=== PATIENT | female | born 1935 | race Caucasian/White ===

== ENCOUNTER 2017-08-23 18:12 | Inpatient (IN) | payer MEDICARE, OTHER ==
[2017-08-23] MEDS: ALBUTEROL 0.5% (NEB) 2.5 MG/0.5 ML AMP INH (18:33)
[2017-08-23] MEDS: ONDANSETRON 4 MG INJ IV ×2 (19:15→20:46)
[2017-08-23] MEDS: NITROGLYCERIN 2% 1 GM OINT PKT TD (19:15)
[2017-08-23] MEDS: morphine 4 MG/ML VIAL IV ×2 (19:15→20:46)
[2017-08-23] MEDS: METHYLPREDNISOLONE 125 MG INJ IV (19:15)
[2017-08-23] MEDS: NITROGLYCERIN (SL) 0.4 MG TAB SL ×2 (19:15→20:28)
[2017-08-23 19:39] LABS: ADD MAN DIFF? NO
[2017-08-23 19:41] LABS: AADO2 Arterial 134.5 mmHg (7.0-24.0); Arterial Base Excess -6.2 mmol/L (-3.0-3); Arterial Blood Gas Oxygen Sat 99.8 mmHG (95.0-100.0); Arterial COHb 0.5 % (0.0-3.0); Arterial Fraction of Oxyhgb 99.1 % (93.0-99.0); Arterial HCO3 20.3 mmol/L (22.0-26.0); Arterial MetHb 0.2 % (0.0-1.5); Arterial Total Hemglobin 12.6 g/dl (12.0-18.0); Arterial pCO2 43.8 mmhg (35-45); Blood Gas IEPAP 15/5; MODE MASK - BIPAP; Site Right Brachial
[2017-08-23 19:43] LABS: BASOPHILS % 0.2 % (0.0-2.0); EOSINOPHILS # 0.1 10^3/ul (0.0-0.5); EOSINOPHILS % 1.2 % (0.0-7.0); HEMATOCRIT 36.6 % (37.0-47.0); HEMOGLOBIN 12.2 g/dl (12.0-16.0); LYMPHOCYTES % 33.9 % (15.0-51.0); MEAN CORPUSCULAR HEMOGLOBIN 33.7 pg (29.0-33.0); MEAN CORPUSCULAR HGB CONC 33.3 g/dl (32.0-37.0); MEAN CORPUSCULAR VOLUME 101.1 fl (82.0-101.0); MEAN PLATELET VOLUME 9.7 fl (7.4-10.4); MONOCYTE # 0.5 10^3/ul (0.3-0.9); MONOCYTES % 5.3 % (0.0-11.0); NEUTROPHIL # 5.3 10^3/ul (1.6-7.5); NEUTROPHILS % 59.2 % (39.0-77.0); PLATELET COUNT 224 10^3/UL (140-415); RED BLOOD COUNT 3.62 10^6/ul (4.20-5.40); RED CELL DISTRIBUTION WIDTH 13.6 % (11.5-14.5)
[2017-08-23 19:43] LABS: WHITE BLOOD COUNT 8.9 10^3/ul (4.8-10.8)
[2017-08-23 20:01] LABS: INR 0.85; PARTIAL THROMBOPLASTIN TIME 30.1 Sec (25.0-35.0); PROTIME 11.7 Sec (11.9-14.9); PT RATIO 0.9
[2017-08-23 20:24] LABS: ALANINE AMINOTRANSFERASE 56 IU/L (13-69); ALBUMIN 4.2 g/dl (3.3-4.9); ALBUMIN/GLOBULIN RATIO 1.35; ALKALINE PHOSPHATASE 59 IU/L (42-121); ANION GAP 14 (8-16); ASPARTATE AMINO TRANSFERASE 39 IU/L (15-46); BILIRUBIN,INDIRECT 0.1 mg/dl (0-1.1); BILIRUBIN,TOTAL 0.1 mg/dl (0.2-1.3); BLOOD UREA NITROGEN 15 mg/dl (7-20); CALCIUM 8.2 mg/dl (8.4-10.2); CARBON DIOXIDE 22 mmol/L (21-31); CHLORIDE 102 mmol/L (97-110); CREATININE 0.67 mg/dl (0.44-1.00); GLUCOSE 183 mg/dl (70-220); POTASSIUM 4.3 mmol/L (3.5-5.1); SODIUM 134 mmol/L (135-144); TOTAL PROTEIN 7.3 g/dl (6.1-8.1)
[2017-08-23 20:32] LABS: B-TYPE NATRIURETIC PEPTIDE 766 PG/ML (0-450)
[2017-08-23 20:35] LABS: TROPONIN-I 0.046 ng/ml (0.00-0.12)
[2017-08-23] MEDS ORDERED: ACETAMINOPHEN 325 MG TAB PO (21:00)
[2017-08-23] MEDS ORDERED: ONDANSETRON 4 MG INJ IV (21:00)
[2017-08-24] MEDS: morphine 2 MG INJ IV ×5 (00:59→21:47)
[2017-08-24] MEDS ORDERED: NITROGLYCERIN (SL) 0.4 MG TAB SL ×2 (01:00→02:00)
[2017-08-24] MEDS ORDERED: ALBUTEROL/IPRATROPIUM (NEB) 3 ML AMP HHN ×2 (01:00→02:00)
[2017-08-24] MEDS ORDERED: morphine 2 MG INJ IV (02:00)
[2017-08-24] MEDS ORDERED: ONDANSETRON 4 MG INJ IV (02:00)
[2017-08-24] MEDS ORDERED: CYCLOBENZAPRINE 10 MG TAB PO (02:00)
[2017-08-24] MEDS: DEXTROSE 5%-0.45% NACL 1,000 ML IV (02:37)
[2017-08-24] MEDS: FUROSEMIDE 20 MG INJ IV ×2 (06:13→18:21)
[2017-08-24 08:29] LABS: ADD MAN DIFF? NO
[2017-08-24 08:32] LABS: WHITE BLOOD COUNT 4.5 10^3/ul (4.8-10.8)
[2017-08-24 08:32] LABS: ABNORMAL IP MESSAGE 1; BASOPHILS % 0.2 % (0.0-2.0); EOSINOPHILS # 0.5 10^3/ul (0.0-0.5); EOSINOPHILS % 11.3 % (0.0-7.0); HEMATOCRIT 34.3 % (37.0-47.0); HEMOGLOBIN 11.6 g/dl (12.0-16.0); LYMPHOCYTES % 22.4 % (15.0-51.0); MEAN CORPUSCULAR HEMOGLOBIN 33.3 pg (29.0-33.0); MEAN CORPUSCULAR HGB CONC 33.8 g/dl (32.0-37.0); MEAN CORPUSCULAR VOLUME 98.6 fl (82.0-101.0); MEAN PLATELET VOLUME 9.7 fl (7.4-10.4); MONOCYTES % 0.9 % (0.0-11.0); NEUTROPHIL # 2.9 10^3/ul (1.6-7.5); PLATELET COUNT 204 10^3/UL (140-415); RED BLOOD COUNT 3.48 10^6/ul (4.20-5.40); RED CELL DISTRIBUTION WIDTH 13.6 % (11.5-14.5)
[2017-08-24 08:37] LABS: POSITIVE DIFF @See below
[2017-08-24] MEDS: CLOPIDOGREL 75 MG TAB PO (08:48)
[2017-08-24] MEDS: FERROUS SULFATE (EC) 325 MG TAB PO (08:48)
[2017-08-24] MEDS: METHYLPREDNISOLONE 40 MG INJ IV ×2 (08:48→21:45)
[2017-08-24] MEDS: ENALAPRIL 10 MG TAB PO (08:49)
[2017-08-24 08:59] LABS: ALANINE AMINOTRANSFERASE 69 IU/L (13-69); ALBUMIN 3.8 g/dl (3.3-4.9); ALBUMIN/GLOBULIN RATIO 1.22; ALKALINE PHOSPHATASE 42 IU/L (42-121); ANION GAP 16 (8-16); ASPARTATE AMINO TRANSFERASE 56 IU/L (15-46); BILIRUBIN,INDIRECT 0.3 mg/dl (0-1.1); BILIRUBIN,TOTAL 0.3 mg/dl (0.2-1.3); BLOOD UREA NITROGEN 13 mg/dl (7-20); CALCIUM 8.3 mg/dl (8.4-10.2); CARBON DIOXIDE 21 mmol/L (21-31); CHLORIDE 100 mmol/L (97-110); CHOL/HDL RATIO 2.1 RATIO; CHOLESTEROL 169 mg/dl (100-200); CREATININE 0.56 mg/dl (0.44-1.00); GLUCOSE 220 mg/dl (70-220); HDL CHOLESTEROL 80 mg/dl (33-92); LDL CHOLESTEROL,CALCULATED 74 mg/dl; MAGNESIUM 1.6 mg/dl (1.7-2.5); POTASSIUM 4.4 mmol/L (3.5-5.1); SODIUM 133 mmol/L (135-144); TOTAL PROTEIN 6.9 g/dl (6.1-8.1); TRIGLYCERIDES 73 mg/dl (0-149)
[2017-08-24] MEDS: ASPIRIN (EC) 81 MG TAB PO (11:30)
[2017-08-24] MEDS: LEVOFLOXACIN 500MG/D5W (PMX) 100 ML IVPB (11:30)
[2017-08-24] MEDS: CALCIUM/VITAMIN D (500/200) TAB PO (11:30)
[2017-08-24] MEDS: MULTIVITAMINS/MINERALS TAB PO (12:36)
[2017-08-24] MEDS: ALBUTEROL/IPRATROPIUM (NEB) 3 ML AMP HHN ×3 (14:02→21:11)
[2017-08-24] MEDS: ATORVASTATIN 40 MG TAB PO (21:46)
[2017-08-24] MEDS: LATANOPROST 0.005% 2.5 ML OPH BOTH EYES (21:46)
[2017-08-24] MEDS: MAGNESIUM SULFATE 4 GM/100 ML 100 ML IVPB (23:20)
[2017-08-24] MEDS: ACETAMINOPHEN 325 MG TAB PO (23:26)
[2017-08-25] MEDS: ALBUTEROL/IPRATROPIUM (NEB) 3 ML AMP HHN ×6 (01:10→20:17)
[2017-08-25] MEDS: morphine 2 MG INJ IV ×3 (04:26→20:26)
[2017-08-25] MEDS: FUROSEMIDE 20 MG INJ IV (06:55)
[2017-08-25 08:45] LABS: ADD MAN DIFF? NO
[2017-08-25] MEDS: CLOPIDOGREL 75 MG TAB PO (08:48)
[2017-08-25] MEDS: FERROUS SULFATE (EC) 325 MG TAB PO (08:48)
[2017-08-25] MEDS: CALCIUM/VITAMIN D (500/200) TAB PO (08:48)
[2017-08-25] MEDS: ASPIRIN (EC) 81 MG TAB PO (08:48)
[2017-08-25] MEDS: BENZONATATE 100 MG CAP PO (08:48)
[2017-08-25] MEDS: MULTIVITAMINS/MINERALS TAB PO (08:48)
[2017-08-25] MEDS: METHYLPREDNISOLONE 40 MG INJ IV ×2 (08:48→20:29)
[2017-08-25] MEDS: FUROSEMIDE 40 MG TAB PO (08:49)
[2017-08-25] MEDS: ENALAPRIL 10 MG TAB PO (08:49)
[2017-08-25 09:03] LABS: WHITE BLOOD COUNT 7.1 10^3/ul (4.8-10.8)
[2017-08-25 09:03] LABS: BASOPHILS % 0.3 % (0.0-2.0); HEMOGLOBIN 12.4 g/dl (12.0-16.0); LYMPHOCYTES # 0.6 10^3/ul (0.8-2.9); LYMPHOCYTES % 8.9 % (15.0-51.0); MEAN CORPUSCULAR HEMOGLOBIN 33.7 pg (29.0-33.0); MEAN CORPUSCULAR HGB CONC 34.4 g/dl (32.0-37.0); MEAN CORPUSCULAR VOLUME 97.8 fl (82.0-101.0); MEAN PLATELET VOLUME 9.7 fl (7.4-10.4); MONOCYTE # 0.3 10^3/ul (0.3-0.9); MONOCYTES % 3.5 % (0.0-11.0); NEUTROPHIL # 6.2 10^3/ul (1.6-7.5); NEUTROPHILS % 87.2 % (39.0-77.0); NUCLEATED RED BLOOD CELLS # 0.3 10^3/ul (0.0-0.0); NUCLEATED RED BLOOD CELLS% 4.2 /100WBC (0.0-0.0); PLATELET COUNT 200 10^3/UL (140-415); RED BLOOD COUNT 3.68 10^6/ul (4.20-5.40); RED CELL DISTRIBUTION WIDTH 13.3 % (11.5-14.5)
[2017-08-25 09:15] LABS: CREATINE KINASE 224 IU/L (23-200)
[2017-08-25 09:26] LABS: B-TYPE NATRIURETIC PEPTIDE 17300 PG/ML (0-450)
[2017-08-25 09:28] LABS: CK INDEX 5.3
[2017-08-25 09:32] LABS: TROPONIN-I 0.675 ng/ml (0.00-0.12)
[2017-08-25 09:45] LABS: ANION GAP 16 (8-16); BLOOD UREA NITROGEN 17 mg/dl (7-20); CALCIUM 8.8 mg/dl (8.4-10.2); CARBON DIOXIDE 24 mmol/L (21-31); CHLORIDE 95 mmol/L (97-110); CREATININE 0.73 mg/dl (0.44-1.00); GLUCOSE 163 mg/dl (70-220); MAGNESIUM 2.9 mg/dl (1.7-2.5); PHOSPHORUS 2.6 mg/dl (2.5-4.9); POTASSIUM 4.4 mmol/L (3.5-5.1); SODIUM 131 mmol/L (135-144)
[2017-08-25] MEDS: LEVOFLOXACIN 500MG/D5W (PMX) 100 ML IVPB (11:33)
[2017-08-25] MEDS: ACETAMINOPHEN 325 MG TAB PO (14:17)
[2017-08-25] MEDS: MAGNESIUM CITRATE 300 ML BTL PO (14:17)
[2017-08-25 15:57] LABS: ADD UMIC YES; UR ASCORBIC ACID NEGATIVE (NEGATIVE); UR BILIRUBIN (Dip) NEGATIVE (NEGATIVE); UR BLOOD (Dip) 1+ mg/dL (NEGATIVE); UR CLARITY CLEAR (CLEAR); UR COLOR YELLOW (YELLOW); UR GLUCOSE (Dip) NEGATIVE (NEGATIVE); UR KETONES (Dip) NEGATIVE (NEGATIVE); UR LEUKOCYTE ESTERASE (Dip) NEGATIVE Leu/ul (NEGATIVE); UR NITRITE (Dip) NEGATIVE (NEGATIVE); UR RBC 2 /HPF (0-5); UR SPECIFIC GRAVITY (Dip) 1.005 (1.003-1.030); UR TOTAL PROTEIN (Dip) NEGATIVE (NEGATIVE); UR UROBILINOGEN (Dip) NEGATIVE (NEGATIVE); UR WBC 0 /HPF (0-5)
[2017-08-25] MEDS: ATORVASTATIN 40 MG TAB PO (20:29)
[2017-08-25] MEDS: DOCUSATE SODIUM 100 MG CAP PO (20:29)
[2017-08-25] MEDS: LATANOPROST 0.005% 2.5 ML OPH BOTH EYES (20:30)
[2017-08-26] MEDS: ALBUTEROL/IPRATROPIUM (NEB) 3 ML AMP HHN ×3 (00:31→08:28)
[2017-08-26] MEDS: morphine 2 MG INJ IV ×4 (00:39→22:04)
[2017-08-26 07:58] LABS: ADD MAN DIFF? NO
[2017-08-26 08:07] LABS: WHITE BLOOD COUNT 7.5 10^3/ul (4.8-10.8)
[2017-08-26 08:07] LABS: HEMATOCRIT 36.1 % (37.0-47.0); HEMOGLOBIN 12.4 g/dl (12.0-16.0); LYMPHOCYTES % 12.9 % (15.0-51.0); MEAN CORPUSCULAR HEMOGLOBIN 33.1 pg (29.0-33.0); MEAN CORPUSCULAR HGB CONC 34.3 g/dl (32.0-37.0); MEAN CORPUSCULAR VOLUME 96.3 fl (82.0-101.0); MEAN PLATELET VOLUME 9.6 fl (7.4-10.4); MONOCYTE # 0.6 10^3/ul (0.3-0.9); MONOCYTES % 7.7 % (0.0-11.0); NEUTROPHIL # 5.9 10^3/ul (1.6-7.5); NEUTROPHILS % 79.1 % (39.0-77.0); PLATELET COUNT 221 10^3/UL (140-415); RED BLOOD COUNT 3.75 10^6/ul (4.20-5.40); RED CELL DISTRIBUTION WIDTH 13.2 % (11.5-14.5)
[2017-08-26 08:22] LABS: INR 0.99; PROTIME 13.2 Sec (11.9-14.9)
[2017-08-26 08:23] LABS: CREATINE KINASE 107 IU/L (23-200)
[2017-08-26 08:29] LABS: ALANINE AMINOTRANSFERASE 72 IU/L (13-69); ALBUMIN 3.5 g/dl (3.3-4.9); ALBUMIN/GLOBULIN RATIO 1.34; ALKALINE PHOSPHATASE 45 IU/L (42-121); ANION GAP 12 (8-16); ASPARTATE AMINO TRANSFERASE 40 IU/L (15-46); BILIRUBIN,INDIRECT 0.4 mg/dl (0-1.1); BILIRUBIN,TOTAL 0.4 mg/dl (0.2-1.3); BLOOD UREA NITROGEN 24 mg/dl (7-20); CALCIUM 8.6 mg/dl (8.4-10.2); CARBON DIOXIDE 31 mmol/L (21-31); CHLORIDE 94 mmol/L (97-110); CREATININE 0.79 mg/dl (0.44-1.00); GLUCOSE 155 mg/dl (70-220); MAGNESIUM 2.5 mg/dl (1.7-2.5); SODIUM 133 mmol/L (135-144); TOTAL PROTEIN 6.1 g/dl (6.1-8.1)
[2017-08-26 08:30] LABS: B-TYPE NATRIURETIC PEPTIDE 21100 PG/ML (0-450)
[2017-08-26 08:34] LABS: CK INDEX 5.6; CK-MB 5.98 ng/ml (0.0-2.4)
[2017-08-26 08:44] LABS: TROPONIN-I 0.315 ng/ml (0.00-0.12)
[2017-08-26] MEDS: METHYLPREDNISOLONE 40 MG INJ IV ×2 (10:38→20:53)
[2017-08-26] MEDS: LEVOFLOXACIN 500MG/D5W (PMX) 100 ML IVPB (10:41)
[2017-08-26] MEDS ORDERED: METHYLPREDNISOLONE (MEDROL) DOSE PACK PO (12:00)
[2017-08-26] MEDS ORDERED: LIDOCAINE 1% (MDV) 20 ML INJ (15:44)
[2017-08-26] MEDS ORDERED: HEPARIN 1000 UNITS/ML 10 ML INJ (15:44)
[2017-08-26] MEDS ORDERED: FENTAnyl 50 MCG/ML VIAL (15:44)
[2017-08-26] MEDS ORDERED: IODIXANOL LOCM 100 ML BTL ×2 (15:44→18:01)
[2017-08-26] MEDS ORDERED: MIDAZOLAM 1 MG/ML 2 ML INJ (15:44)
[2017-08-26] MEDS ORDERED: VERAPAMIL 5 MG INJ (16:26)
[2017-08-26] MEDS ORDERED: SOD CHLORIDE 0.9% 500 ML (16:26)
[2017-08-26] MEDS ORDERED: ADENOSINE 30 ML (16:32)
[2017-08-26] MEDS ORDERED: TICAGRELOR 90 MG TABLET (16:48)
[2017-08-26] MEDS ORDERED: NITROGLYCERIN (IC) 100 MCG/ML INJ (16:49)
[2017-08-26] MEDS ORDERED: ACETAMINOPHEN 325 MG TAB PO (18:00)
[2017-08-26] MEDS ORDERED: morphine 2 MG INJ IV (18:00)
[2017-08-26] MEDS ORDERED: BIVALIRUDIN 250MG /NS 50 ML 50 ML IVPB (18:01)
[2017-08-26] MEDS ORDERED: IOHEXOL 350MG/ML 50 ML BTL (18:01)
[2017-08-26] MEDS: DOCUSATE SODIUM 100 MG CAP PO (18:51)
[2017-08-26] MEDS: ASPIRIN (EC) 81 MG TAB PO (18:56)
[2017-08-26] MEDS: CALCIUM/VITAMIN D (500/200) TAB PO (18:56)
[2017-08-26] MEDS: ENALAPRIL 10 MG TAB PO (18:56)
[2017-08-26] MEDS: MULTIVITAMINS/MINERALS TAB PO (18:56)
[2017-08-26] MEDS: CLOPIDOGREL 75 MG TAB PO (18:56)
[2017-08-26] MEDS: FERROUS SULFATE (EC) 325 MG TAB PO (18:57)
[2017-08-26] MEDS: OXYCODONE/ACETAMINOPHEN (5/325) TAB PO ×2 (19:16→23:27)
[2017-08-26] MEDS: SOD CHLORIDE 0.9% 1,000 ML IV (19:30)
[2017-08-26] MEDS: ATORVASTATIN 40 MG TAB PO (20:48)
[2017-08-26] MEDS: LATANOPROST 0.005% 2.5 ML OPH BOTH EYES (21:22)
[2017-08-26] MEDS: DOCUSATE SODIUM 10 MG/ML (10ML CUP) PO (21:22)
[2017-08-26] MEDS: NACL 0.9% 3 ML SYG IV (21:27)
[2017-08-27] MEDS: morphine 2 MG INJ IV ×5 (02:26→21:05)
[2017-08-27] MEDS: SOD CHLORIDE 0.9% 500 ML IV ×4 (03:12→23:00)
[2017-08-27 04:58] LABS: ADD MAN DIFF? NO
[2017-08-27 05:04] LABS: HEMOGLOBIN 10.9 g/dl (12.0-16.0); LYMPHOCYTES # 0.9 10^3/ul (0.8-2.9); LYMPHOCYTES % 13.4 % (15.0-51.0); MEAN CORPUSCULAR HEMOGLOBIN 33.4 pg (29.0-33.0); MEAN CORPUSCULAR HGB CONC 34.1 g/dl (32.0-37.0); MEAN CORPUSCULAR VOLUME 98.2 fl (82.0-101.0); MEAN PLATELET VOLUME 9.9 fl (7.4-10.4); MONOCYTE # 0.4 10^3/ul (0.3-0.9); MONOCYTES % 6.5 % (0.0-11.0); NEUTROPHIL # 5.3 10^3/ul (1.6-7.5); NEUTROPHILS % 79.6 % (39.0-77.0); PLATELET COUNT 191 10^3/UL (140-415); RED BLOOD COUNT 3.26 10^6/ul (4.20-5.40); RED CELL DISTRIBUTION WIDTH 13.3 % (11.5-14.5)
[2017-08-27 05:04] LABS: WHITE BLOOD COUNT 6.6 10^3/ul (4.8-10.8)
[2017-08-27 05:28] LABS: ANION GAP 12 (8-16); BLOOD UREA NITROGEN 27 mg/dl (7-20); CARBON DIOXIDE 27 mmol/L (21-31); CHLORIDE 99 mmol/L (97-110); CREATININE 0.76 mg/dl (0.44-1.00); GLUCOSE 157 mg/dl (70-220); SODIUM 134 mmol/L (135-144)
[2017-08-27] MEDS: LEVOFLOXACIN 500 MG TAB PO (05:31)
[2017-08-27] MEDS: OXYCODONE/ACETAMINOPHEN (5/325) TAB PO ×2 (05:34→08:06)
[2017-08-27] MEDS: FERROUS SULFATE (EC) 325 MG TAB PO (09:18)
[2017-08-27] MEDS: DOCUSATE SODIUM 10 MG/ML (10ML CUP) PO ×2 (09:18→20:49)
[2017-08-27] MEDS: METHYLPREDNISOLONE 40 MG INJ IV (09:20)
[2017-08-27] MEDS: ASPIRIN (EC) 81 MG TAB PO (09:21)
[2017-08-27] MEDS: CALCIUM/VITAMIN D (500/200) TAB PO (09:21)
[2017-08-27] MEDS: CLOPIDOGREL 75 MG TAB PO (09:21)
[2017-08-27] MEDS: MULTIVITAMINS/MINERALS TAB PO (09:22)
[2017-08-27] MEDS: ENALAPRIL 10 MG TAB PO (09:23)
[2017-08-27] MEDS: ATORVASTATIN 40 MG TAB PO (20:49)
[2017-08-27] MEDS: LATANOPROST 0.005% 2.5 ML OPH BOTH EYES (21:13)
[2017-08-28] MEDS: SOD CHLORIDE 0.9% 500 ML IV ×3 (00:25→19:00)
[2017-08-28] MEDS: OXYCODONE/ACETAMINOPHEN (5/325) TAB PO (00:25)
[2017-08-28] MEDS: morphine 2 MG INJ IV ×3 (04:57→22:46)
[2017-08-28] MEDS: LEVOFLOXACIN 500 MG TAB PO (04:57)
[2017-08-28 06:13] LABS: ADD MAN DIFF? NO
[2017-08-28 06:26] LABS: HEMATOCRIT 32.3 % (37.0-47.0); HEMOGLOBIN 10.8 g/dl (12.0-16.0); LYMPHOCYTES # 1.5 10^3/ul (0.8-2.9); LYMPHOCYTES % 22.2 % (15.0-51.0); MEAN CORPUSCULAR HEMOGLOBIN 33.5 pg (29.0-33.0); MEAN CORPUSCULAR HGB CONC 33.4 g/dl (32.0-37.0); MEAN CORPUSCULAR VOLUME 100.3 fl (82.0-101.0); MEAN PLATELET VOLUME 9.9 fl (7.4-10.4); MONOCYTE # 0.8 10^3/ul (0.3-0.9); MONOCYTES % 12.1 % (0.0-11.0); NEUTROPHIL # 4.3 10^3/ul (1.6-7.5); NEUTROPHILS % 65.4 % (39.0-77.0); PLATELET COUNT 175 10^3/UL (140-415); RED BLOOD COUNT 3.22 10^6/ul (4.20-5.40); RED CELL DISTRIBUTION WIDTH 13.3 % (11.5-14.5)
[2017-08-28 06:26] LABS: WHITE BLOOD COUNT 6.5 10^3/ul (4.8-10.8)
[2017-08-28 07:46] LABS: ANION GAP 12 (8-16); BLOOD UREA NITROGEN 27 mg/dl (7-20); CARBON DIOXIDE 26 mmol/L (21-31); CHLORIDE 104 mmol/L (97-110); CREATININE 0.78 mg/dl (0.44-1.00); GLUCOSE 101 mg/dl (70-220); POTASSIUM 3.9 mmol/L (3.5-5.1); SODIUM 138 mmol/L (135-144)
[2017-08-28] MEDS: ENALAPRIL 10 MG TAB PO (09:55)
[2017-08-28] MEDS: CLOPIDOGREL 75 MG TAB PO (09:55)
[2017-08-28] MEDS: DOCUSATE SODIUM 10 MG/ML (10ML CUP) PO ×2 (09:55→20:44)
[2017-08-28] MEDS: FERROUS SULFATE (EC) 325 MG TAB PO (09:56)
[2017-08-28] MEDS: MULTIVITAMINS/MINERALS TAB PO (09:56)
[2017-08-28] MEDS: ASPIRIN (EC) 81 MG TAB PO (09:57)
[2017-08-28] MEDS: CALCIUM/VITAMIN D (500/200) TAB PO (09:57)
[2017-08-28] MEDS: ATORVASTATIN 40 MG TAB PO (20:44)
[2017-08-28] MEDS: LATANOPROST 0.005% 2.5 ML OPH BOTH EYES (20:46)
[2017-08-29] MEDS: SOD CHLORIDE 0.9% 500 ML IV ×2 (01:40→08:20)
[2017-08-29] MEDS: morphine 2 MG INJ IV ×5 (03:06→22:57)
[2017-08-29] MEDS: LEVOFLOXACIN 500 MG TAB PO (06:48)
[2017-08-29 08:17] LABS: ADD MAN DIFF? NO
[2017-08-29 08:33] LABS: BASOPHILS % 0.1 % (0.0-2.0); EOSINOPHILS # 0.2 10^3/ul (0.0-0.5); EOSINOPHILS % 2.2 % (0.0-7.0); HEMATOCRIT 34.4 % (37.0-47.0); HEMOGLOBIN 11.2 g/dl (12.0-16.0); LYMPHOCYTES # 1.5 10^3/ul (0.8-2.9); LYMPHOCYTES % 19.1 % (15.0-51.0); MEAN CORPUSCULAR HEMOGLOBIN 33.2 pg (29.0-33.0); MEAN CORPUSCULAR HGB CONC 32.6 g/dl (32.0-37.0); MEAN CORPUSCULAR VOLUME 102.1 fl (82.0-101.0); MEAN PLATELET VOLUME 10.3 fl (7.4-10.4); MONOCYTE # 0.8 10^3/ul (0.3-0.9); MONOCYTES % 10.4 % (0.0-11.0); NEUTROPHIL # 5.3 10^3/ul (1.6-7.5); NEUTROPHILS % 67.7 % (39.0-77.0); PLATELET COUNT 175 10^3/UL (140-415); RED BLOOD COUNT 3.37 10^6/ul (4.20-5.40); RED CELL DISTRIBUTION WIDTH 13.5 % (11.5-14.5)
[2017-08-29 08:33] LABS: WHITE BLOOD COUNT 7.8 10^3/ul (4.8-10.8)
[2017-08-29 08:53] LABS: ANION GAP 12 (8-16); BLOOD UREA NITROGEN 24 mg/dl (7-20); CARBON DIOXIDE 28 mmol/L (21-31); CHLORIDE 103 mmol/L (97-110); GLUCOSE 88 mg/dl (70-220); POTASSIUM 4.3 mmol/L (3.5-5.1); SODIUM 139 mmol/L (135-144)
[2017-08-29] MEDS: HYDROCODONE/APAP (5/325) TAB PO (10:47)
[2017-08-29] MEDS: DOCUSATE SODIUM 10 MG/ML (10ML CUP) PO ×2 (10:47→21:00)
[2017-08-29] MEDS: MULTIVITAMINS/MINERALS TAB PO (10:49)
[2017-08-29] MEDS: CLOPIDOGREL 75 MG TAB PO (10:49)
[2017-08-29] MEDS: FERROUS SULFATE (EC) 325 MG TAB PO (10:49)
[2017-08-29] MEDS: CALCIUM/VITAMIN D (500/200) TAB PO (10:49)
[2017-08-29] MEDS: ENALAPRIL 10 MG TAB PO (10:50)
[2017-08-29] MEDS: ASPIRIN (EC) 81 MG TAB PO (10:50)
[2017-08-29] MEDS: ATORVASTATIN 40 MG TAB PO (21:23)
[2017-08-29] MEDS: LATANOPROST 0.005% 2.5 ML OPH BOTH EYES (21:25)
[2017-08-30] MEDS: HYDROCODONE/APAP (5/325) TAB PO ×2 (03:12→09:10)
[2017-08-30] MEDS: LEVOFLOXACIN 500 MG TAB PO (05:44)
[2017-08-30] MEDS: morphine 2 MG INJ IV (05:44)
[2017-08-30] MEDS: DOCUSATE SODIUM 10 MG/ML (10ML CUP) PO (09:06)
[2017-08-30] MEDS: CLOPIDOGREL 75 MG TAB PO (09:08)
[2017-08-30] MEDS: ASPIRIN (EC) 81 MG TAB PO (09:08)
[2017-08-30] MEDS: FERROUS SULFATE (EC) 325 MG TAB PO (09:08)
[2017-08-30] MEDS: MULTIVITAMINS/MINERALS TAB PO (09:08)
[2017-08-30] MEDS: CALCIUM/VITAMIN D (500/200) TAB PO (09:09)
[2017-08-30] MEDS: ENALAPRIL 10 MG TAB PO (09:09)
[2017-08-30] MEDS ORDERED: BARIUM SULFATE 135 ML (E-Z HD) PO (11:55)
[2017-08-31] MEDS ORDERED: ENALAPRIL 5 MG TAB PO (09:00)
== END 2017-08-30 12:45 | disposition home or self-care (01) | DRG 981 ==
LOC: ICU 08-26 18:21 → MS4 08-27 14:25 → E/R 18:12 → MS4 20:37
PROC: 027036Z Dilation of Coronary Artery, One Artery with Three Drug-eluting Intraluminal Devices, Percutaneous Approach (ICD-10-PCS; principal; 2017-08-26 12:00)
PROC: 4A023N7 Measurement of Cardiac Sampling and Pressure, Left Heart, Percutaneous Approach (ICD-10-PCS; 2017-08-26 12:00)
PROC: B211YZZ Fluoroscopy of Multiple Coronary Arteries using Other Contrast (ICD-10-PCS; 2017-08-26 12:00)
PROC: 4A033BC Measurement of Arterial Pressure, Coronary, Percutaneous Approach (ICD-10-PCS; 2017-08-26 12:00)
DX: J96.01 Acute respiratory failure with hypoxia (principal); I21.4 Non-ST elevation (NSTEMI) myocardial infarction; I50.33 Acute on chronic diastolic (congestive) heart failure; E87.2 Acidosis; D62 Acute posthemorrhagic anemia; J44.0 Chronic obstructive pulmonary disease with (acute) lower respiratory infection; E87.1 Hypo-osmolality and hyponatremia; J44.1 Chronic obstructive pulmonary disease with (acute) exacerbation; T82.855A Stenosis of coronary artery stent, initial encounter; I77.1 Stricture of artery; I11.0 Hypertensive heart disease with heart failure; I35.0 Nonrheumatic aortic (valve) stenosis; I25.10 Atherosclerotic heart disease of native coronary artery without angina pectoris; I25.5 Ischemic cardiomyopathy; J20.9 Acute bronchitis, unspecified; I07.1 Rheumatic tricuspid insufficiency; M06.9 Rheumatoid arthritis, unspecified; E78.5 Hyperlipidemia, unspecified; G89.29 Other chronic pain; M54.9 Dorsalgia, unspecified; H40.9 Unspecified glaucoma; I25.2 Old myocardial infarction; Z95.5 Presence of coronary angioplasty implant and graft; Z87.891 Personal history of nicotine dependence; Z79.02 Long term (current) use of antithrombotics/antiplatelets
CPT/HCPCS: 36415; 36600; 71045; 71250; 74230; 80048; 80053; 80061; 81001; 82550; 82553; 82803; 83735; 83880; 84100; 84484; 85025; 85610; 85730; 87081; 92526; 92610; 92611; 93005; 93306; 93458; 93571; 93926; 94640; 94660; 94664; 96374; 96375; 96376; 97110; 97116; 97164; 97530; 99291-25; J1940

== ENCOUNTER 2017-09-08 23:27 | Observation (INO) | payer MEDICARE, OTHER ==
[2017-09-09 01:52] LABS: ADD MAN DIFF? NO
[2017-09-09 01:54] LABS: BASOPHILS % 0.4 % (0.0-2.0); EOSINOPHILS # 0.2 10^3/ul (0.0-0.5); EOSINOPHILS % 4.2 % (0.0-7.0); HEMATOCRIT 30.1 % (37.0-47.0); HEMOGLOBIN 10.2 g/dl (12.0-16.0); LYMPHOCYTES # 1.8 10^3/ul (0.8-2.9); LYMPHOCYTES % 31.2 % (15.0-51.0); MEAN CORPUSCULAR HGB CONC 33.9 g/dl (32.0-37.0); MEAN CORPUSCULAR VOLUME 100.3 fl (82.0-101.0); MEAN PLATELET VOLUME 10.5 fl (7.4-10.4); MONOCYTE # 0.7 10^3/ul (0.3-0.9); MONOCYTES % 12.7 % (0.0-11.0); NEUTROPHIL # 2.9 10^3/ul (1.6-7.5); NEUTROPHILS % 51.3 % (39.0-77.0); PLATELET COUNT 235 10^3/UL (140-415); RED CELL DISTRIBUTION WIDTH 13.7 % (11.5-14.5)
[2017-09-09 01:54] LABS: WHITE BLOOD COUNT 5.7 10^3/ul (4.8-10.8)
[2017-09-09 02:15] LABS: ANION GAP 15 (8-16); BLOOD UREA NITROGEN 7 mg/dl (7-20); CALCIUM 8.8 mg/dl (8.4-10.2); CARBON DIOXIDE 24 mmol/L (21-31); CHLORIDE 100 mmol/L (97-110); GLUCOSE 103 mg/dl (70-220); POTASSIUM 4.3 mmol/L (3.5-5.1); SODIUM 135 mmol/L (135-144)
[2017-09-09 02:24] LABS: B-TYPE NATRIURETIC PEPTIDE 6050 PG/ML (0-450)
[2017-09-09] MEDS: DIPHENHYDRAMINE 50 MG INJ IV (02:40)
[2017-09-09] MEDS: HYDROCODONE/APAP (5/325) TAB PO ×3 (03:29→19:09)
[2017-09-09] MEDS: FUROSEMIDE 40 MG INJ IV (03:29)
[2017-09-09] MEDS ORDERED: NACL 0.9% 3 ML SYG IV (06:00)
[2017-09-09] MEDS ORDERED: NITROGLYCERIN (SL) 0.4 MG TAB SL (06:00)
[2017-09-09] MEDS ORDERED: ALBUTEROL/IPRATROPIUM (NEB) 3 ML AMP HHN (06:00)
[2017-09-09] MEDS ORDERED: morphine 2 MG INJ (07:44)
[2017-09-09] MEDS: ENALAPRIL 10 MG TAB PO (09:10)
[2017-09-09] MEDS: FERROUS SULFATE (EC) 325 MG TAB PO (09:10)
[2017-09-09] MEDS: BENZONATATE 100 MG CAP PO (09:12)
[2017-09-09] MEDS: CLOPIDOGREL 75 MG TAB PO (09:17)
[2017-09-09] MEDS: ASPIRIN (EC) 81 MG TAB PO (09:17)
[2017-09-09] MEDS: CYCLOBENZAPRINE 10 MG TAB PO (09:17)
[2017-09-09] MEDS: HEPARIN 5,000 UNIT/0.5 ML VIAL SC ×2 (09:18→21:03)
[2017-09-09] MEDS: IBUPROFEN 400 MG TAB PO ×2 (10:00→21:52)
[2017-09-09] MEDS: CLINDAMYCIN 600 MG/D5W (PMX) 50 ML IVPB ×2 (11:18→17:25)
[2017-09-09] MEDS: METHYLPREDNISOLONE 125 MG INJ IV (11:23)
[2017-09-09] MEDS: CALCIUM/VITAMIN D (500/200) TAB PO (17:25)
[2017-09-09] MEDS: LATANOPROST 0.005% 2.5 ML OPH BOTH EYES (21:04)
[2017-09-09] MEDS: ATORVASTATIN 40 MG TAB PO (21:12)
[2017-09-10] MEDS: CLINDAMYCIN 600 MG/D5W (PMX) 50 ML IVPB ×3 (01:44→17:00)
[2017-09-10] MEDS: IBUPROFEN 400 MG TAB PO (05:39)
[2017-09-10 06:04] LABS: ADD MAN DIFF? NO
[2017-09-10 06:09] LABS: HEMATOCRIT 27.7 % (37.0-47.0); HEMOGLOBIN 9.5 g/dl (12.0-16.0); LYMPHOCYTES % 24.8 % (15.0-51.0); MEAN CORPUSCULAR HEMOGLOBIN 34.1 pg (29.0-33.0); MEAN CORPUSCULAR HGB CONC 34.3 g/dl (32.0-37.0); MEAN CORPUSCULAR VOLUME 99.3 fl (82.0-101.0); MEAN PLATELET VOLUME 9.5 fl (7.4-10.4); MONOCYTE # 0.2 10^3/ul (0.3-0.9); MONOCYTES % 4.4 % (0.0-11.0); NEUTROPHIL # 2.9 10^3/ul (1.6-7.5); NEUTROPHILS % 70.3 % (39.0-77.0); PLATELET COUNT 205 10^3/UL (140-415); RED BLOOD COUNT 2.79 10^6/ul (4.20-5.40); RED CELL DISTRIBUTION WIDTH 13.3 % (11.5-14.5)
[2017-09-10 06:09] LABS: WHITE BLOOD COUNT 4.1 10^3/ul (4.8-10.8)
[2017-09-10 06:32] LABS: ALANINE AMINOTRANSFERASE 27 IU/L (13-69); ALBUMIN 3.2 g/dl (3.3-4.9); ALBUMIN/GLOBULIN RATIO 1.28; ALKALINE PHOSPHATASE 37 IU/L (42-121); ANION GAP 14 (8-16); ASPARTATE AMINO TRANSFERASE 19 IU/L (15-46); BILIRUBIN,INDIRECT 0.4 mg/dl (0-1.1); BILIRUBIN,TOTAL 0.4 mg/dl (0.2-1.3); BLOOD UREA NITROGEN 17 mg/dl (7-20); CALCIUM 9.4 mg/dl (8.4-10.2); CARBON DIOXIDE 28 mmol/L (21-31); CHLORIDE 97 mmol/L (97-110); CREATININE 0.97 mg/dl (0.44-1.00); GLUCOSE 140 mg/dl (70-220); POTASSIUM 4.6 mmol/L (3.5-5.1); SODIUM 134 mmol/L (135-144); TOTAL PROTEIN 5.7 g/dl (6.1-8.1)
[2017-09-10] MEDS: ASPIRIN (EC) 81 MG TAB PO (08:04)
[2017-09-10] MEDS: ENALAPRIL 10 MG TAB PO (08:04)
[2017-09-10] MEDS: CALCIUM/VITAMIN D (500/200) TAB PO (08:04)
[2017-09-10] MEDS: FERROUS SULFATE (EC) 325 MG TAB PO (08:04)
[2017-09-10] MEDS: MULTIVITAMINS/MINERALS TAB PO (08:05)
[2017-09-10] MEDS: HYDROCODONE/APAP (5/325) TAB PO ×2 (08:06→15:10)
[2017-09-10] MEDS: HEPARIN 5,000 UNIT/0.5 ML VIAL SC (08:10)
[2017-09-10] MEDS: CLOPIDOGREL 75 MG TAB PO (09:50)
[2017-09-10] MEDS: ACETAMINOPHEN 325 MG TAB PO (09:52)
[2017-09-10] MEDS: ONDANSETRON 4 MG INJ IV (13:19)
== END 2017-09-10 18:50 | disposition home or self-care (01) ==
LOC: E/R 23:27 → MS3 09-09 03:14
DX: L03.211 Cellulitis of face (principal); I25.10 Atherosclerotic heart disease of native coronary artery without angina pectoris; Z95.5 Presence of coronary angioplasty implant and graft; I11.0 Hypertensive heart disease with heart failure; I50.33 Acute on chronic diastolic (congestive) heart failure; J44.9 Chronic obstructive pulmonary disease, unspecified; E78.5 Hyperlipidemia, unspecified; R60.0 Localized edema; M06.9 Rheumatoid arthritis, unspecified; I25.2 Old myocardial infarction; Z79.82 Long term (current) use of aspirin; Z88.0 Allergy status to penicillin
CPT/HCPCS: 36415; 71045; 73610-RT; 80048; 80053; 83880; 85025; 93005; 93970; 96372; 96374; 96375; 99217; 99285-25

== ENCOUNTER 2017-10-03 14:37 | Inpatient (IN) | payer MEDICARE, OTHER ==
[2017-10-03] MEDS: NITROGLYCERIN 2% 1 GM OINT PKT TD (15:05)
[2017-10-03 15:14] LABS: ADD MAN DIFF? NO
[2017-10-03 15:16] LABS: BASOPHILS % 0.2 % (0.0-2.0); EOSINOPHILS # 0.3 10^3/ul (0.0-0.5); EOSINOPHILS % 5.1 % (0.0-7.0); HEMOGLOBIN 11.1 g/dl (12.0-16.0); LYMPHOCYTES # 2.1 10^3/ul (0.8-2.9); LYMPHOCYTES % 37.5 % (15.0-51.0); MEAN CORPUSCULAR HEMOGLOBIN 33.1 pg (29.0-33.0); MEAN CORPUSCULAR HGB CONC 34.7 g/dl (32.0-37.0); MEAN CORPUSCULAR VOLUME 95.5 fl (82.0-101.0); MEAN PLATELET VOLUME 9.3 fl (7.4-10.4); MONOCYTE # 0.7 10^3/ul (0.3-0.9); MONOCYTES % 13.5 % (0.0-11.0); NEUTROPHIL # 2.4 10^3/ul (1.6-7.5); NEUTROPHILS % 43.5 % (39.0-77.0); PLATELET COUNT 209 10^3/UL (140-415); RED BLOOD COUNT 3.35 10^6/ul (4.20-5.40); RED CELL DISTRIBUTION WIDTH 13.2 % (11.5-14.5)
[2017-10-03 15:16] LABS: WHITE BLOOD COUNT 5.5 10^3/ul (4.8-10.8)
[2017-10-03 15:35] LABS: ANION GAP 14 (8-16); BLOOD UREA NITROGEN 10 mg/dl (7-20); CARBON DIOXIDE 23 mmol/L (21-31); CHLORIDE 97 mmol/L (97-110); GLUCOSE 121 mg/dl (70-220); POTASSIUM 3.8 mmol/L (3.5-5.1); SODIUM 130 mmol/L (135-144)
[2017-10-03 15:49] LABS: TROPONIN-I < 0.012 ng/ml (0.00-0.12)
[2017-10-03] MEDS: NITROGLYCERIN 50 MG/D5W (PMX) 250 ML IV (15:57)
[2017-10-03] MEDS: FUROSEMIDE 40 MG INJ IV ×2 (16:55→18:56)
[2017-10-03 16:56] LABS: B-TYPE NATRIURETIC PEPTIDE 1150 PG/ML (0-450)
[2017-10-03] MEDS ORDERED: ONDANSETRON 4 MG INJ ×2 (17:29→18:05)
[2017-10-03] MEDS: SOD CHLORIDE 0.9% 100 ML (17:50)
[2017-10-03] MEDS: IOHEXOL 100 ML (17:50)
[2017-10-03] MEDS ORDERED: BENZONATATE 100 MG CAP PO (18:00)
[2017-10-03] MEDS ORDERED: NACL 0.9% 3 ML SYG IV (18:00)
[2017-10-03] MEDS ORDERED: CYCLOBENZAPRINE 10 MG TAB PO (18:00)
[2017-10-03 18:08] LABS: AADO2 Arterial 142.9 mmHg (7.0-24.0); Allen Test ACCEPTAB; Arterial Base Excess -1.1 mmol/L (-3.0-3); Arterial Blood Gas Oxygen Sat 97.4 mmHG (95.0-100.0); Arterial COHb 0.3 % (0.0-3.0); Arterial Fraction of Oxyhgb 96.8 % (93.0-99.0); Arterial MetHb 0.3 % (0.0-1.5); Arterial Total Hemglobin 12.4 g/dl (12.0-18.0); Arterial pCO2 36.4 mmhg (35-45); Blood Gas IEPAP 15/5; Blood Gas PS 10; MODE MASK - BIPAP; Site Right Radial
[2017-10-03] MEDS: morphine 2 MG INJ IV ×2 (18:50→22:57)
[2017-10-03] MEDS ORDERED: LABETALOL HCL 20MG INJ IV (20:00)
[2017-10-03 20:53] LABS: CREATINE KINASE 176 IU/L (23-200)
[2017-10-03] MEDS: ATORVASTATIN 40 MG TAB PO (21:00)
[2017-10-03 21:05] LABS: CK-MB 7.12 ng/ml (0.0-2.4); TROPONIN-I 0.021 ng/ml (0.00-0.12)
[2017-10-03] MEDS: AMLODIPINE 5 MG TAB PO (21:22)
[2017-10-03] MEDS: LABETALOL HCL 20MG INJ IV (21:22)
[2017-10-04] MEDS: BIMATOPROST 0.01% 2.5 ML BTL BOTH EYES ×2 (02:13→21:00)
[2017-10-04] MEDS: ONDANSETRON 4 MG INJ IV (02:42)
[2017-10-04 02:50] LABS: CREATINE KINASE 135 IU/L (23-200)
[2017-10-04 03:00] LABS: CK INDEX 4.5; CK-MB 6.02 ng/ml (0.0-2.4); TROPONIN-I 0.029 ng/ml (0.00-0.12)
[2017-10-04 06:04] LABS: ADD MAN DIFF? NO
[2017-10-04 06:07] LABS: BASOPHILS % 0.4 % (0.0-2.0); EOSINOPHILS # 0.5 10^3/ul (0.0-0.5); EOSINOPHILS % 7.1 % (0.0-7.0); HEMOGLOBIN 11.2 g/dl (12.0-16.0); LYMPHOCYTES # 1.8 10^3/ul (0.8-2.9); LYMPHOCYTES % 24.9 % (15.0-51.0); MEAN CORPUSCULAR HEMOGLOBIN 33.3 pg (29.0-33.0); MEAN CORPUSCULAR VOLUME 95.2 fl (82.0-101.0); MEAN PLATELET VOLUME 9.5 fl (7.4-10.4); MONOCYTES % 14.3 % (0.0-11.0); NEUTROPHIL # 3.8 10^3/ul (1.6-7.5); PLATELET COUNT 225 10^3/UL (140-415); RED BLOOD COUNT 3.36 10^6/ul (4.20-5.40); RED CELL DISTRIBUTION WIDTH 13.2 % (11.5-14.5)
[2017-10-04 06:07] LABS: WHITE BLOOD COUNT 7.2 10^3/ul (4.8-10.8)
[2017-10-04] MEDS: FUROSEMIDE 40 MG INJ IV (06:23)
[2017-10-04] MEDS: PANTOPRAZOLE 40 MG INJ IV (06:23)
[2017-10-04] MEDS: morphine 2 MG INJ IV ×2 (06:23→12:29)
[2017-10-04 06:35] LABS: ANION GAP 15 (8-16); BLOOD UREA NITROGEN 13 mg/dl (7-20); CALCIUM 9.3 mg/dl (8.4-10.2); CARBON DIOXIDE 25 mmol/L (21-31); CHLORIDE 94 mmol/L (97-110); CREATININE 0.81 mg/dl (0.44-1.00); GLUCOSE 121 mg/dl (70-220); MAGNESIUM 1.4 mg/dl (1.7-2.5); POTASSIUM 3.4 mmol/L (3.5-5.1); SODIUM 131 mmol/L (135-144)
[2017-10-04 06:45] LABS: B-TYPE NATRIURETIC PEPTIDE 3730 PG/ML (0-450)
[2017-10-04] MEDS: SOD CHLORIDE 0.9% 250 ML IV (08:35)
[2017-10-04] MEDS: POTASSIUM CHLORIDE 100 ML IVPB (08:44)
[2017-10-04] MEDS: AMLODIPINE 5 MG TAB PO (09:00)
[2017-10-04] MEDS: ENALAPRIL 10 MG TAB PO (09:00)
[2017-10-04] MEDS ORDERED: NORepinephrine 8MG/250 ML (PMX 250 ML IV (09:00)
[2017-10-04] MEDS ORDERED: POTASSIUM CHLORIDE (SR) 20 MEQ TAB PO (10:01)
[2017-10-04] MEDS: MAGNESIUM SULFATE 2 GM/50 ML 50 ML IVPB (10:27)
[2017-10-04] MEDS: CLOPIDOGREL 75 MG TAB PO (10:38)
[2017-10-04] MEDS: FERROUS SULFATE (EC) 325 MG TAB PO (10:39)
[2017-10-04] MEDS: ASPIRIN (EC) 81 MG TAB PO (10:39)
[2017-10-04] MEDS: POTASSIUM CHLORIDE 20 MEQ POWDER FOR ORAL SOLN PO (10:39)
[2017-10-04] MEDS: MAGNESIUM SULFATE 4 GM/100 ML 100 ML IVPB (11:24)
[2017-10-04 15:26] LABS: CREATINE KINASE 130 IU/L (23-200)
[2017-10-04 15:36] LABS: CK INDEX 4.7; CK-MB 6.07 ng/ml (0.0-2.4)
[2017-10-04 15:41] LABS: TROPONIN-I 0.033 ng/ml (0.00-0.12)
[2017-10-04] MEDS: HYDROCODONE/APAP (10/325) TAB PO ×2 (18:38→23:36)
[2017-10-04] MEDS: ATORVASTATIN 40 MG TAB PO (21:44)
[2017-10-05] MEDS: HYDROCODONE/APAP (10/325) TAB PO ×2 (04:03→12:56)
[2017-10-05] MEDS: PANTOPRAZOLE 40 MG INJ IV (05:29)
[2017-10-05 07:24] LABS: CREATINE KINASE 197 IU/L (23-200)
[2017-10-05 07:26] LABS: ALANINE AMINOTRANSFERASE 29 IU/L (13-69); ALBUMIN 3.6 g/dl (3.3-4.9); ALBUMIN/GLOBULIN RATIO 1.56; ALKALINE PHOSPHATASE 40 IU/L (42-121); ANION GAP 14 (8-16); ASPARTATE AMINO TRANSFERASE 19 IU/L (15-46); BILIRUBIN,INDIRECT 0.3 mg/dl (0-1.1); BILIRUBIN,TOTAL 0.3 mg/dl (0.2-1.3); BLOOD UREA NITROGEN 21 mg/dl (7-20); CALCIUM 8.9 mg/dl (8.4-10.2); CARBON DIOXIDE 25 mmol/L (21-31); CHLORIDE 96 mmol/L (97-110); CHOL/HDL RATIO 2.2 RATIO; CHOLESTEROL 136 mg/dl (100-200); CREATININE 1.95 mg/dl (0.44-1.00); GLUCOSE 121 mg/dl (70-220); HDL CHOLESTEROL 61 mg/dl (33-92); LDL CHOLESTEROL,CALCULATED 51 mg/dl; MAGNESIUM 3.4 mg/dl (1.7-2.5); POTASSIUM 4.5 mmol/L (3.5-5.1); SODIUM 130 mmol/L (135-144); TOTAL PROTEIN 5.9 g/dl (6.1-8.1); TRIGLYCERIDES 120 mg/dl (0-149)
[2017-10-05 07:34] LABS: B-TYPE NATRIURETIC PEPTIDE 2030 PG/ML (0-450)
[2017-10-05 07:37] LABS: CK INDEX 4.1; CK-MB 8.15 ng/ml (0.0-2.4); TROPONIN-I 0.056 ng/ml (0.00-0.12)
[2017-10-05] MEDS: REGADENOSON 0.4 MG/5 ML SYG ×2 (08:09→08:15)
[2017-10-05] MEDS: ASPIRIN (EC) 81 MG TAB PO (09:26)
[2017-10-05] MEDS: FERROUS SULFATE (EC) 325 MG TAB PO (09:26)
[2017-10-05] MEDS: CLOPIDOGREL 75 MG TAB PO (09:26)
[2017-10-05] MEDS: SOD CHLORIDE 0.9% 1,000 ML IV ×2 (09:27→20:07)
[2017-10-05 13:57] LABS: ADD UMIC YES; UR ASCORBIC ACID NEGATIVE (NEGATIVE); UR BACTERIA FEW /HPF (NONE SEEN); UR BILIRUBIN (Dip) NEGATIVE (NEGATIVE); UR BLOOD (Dip) 3+ mg/dL (NEGATIVE); UR CLARITY CLOUDY (CLEAR); UR COLOR YELLOW (YELLOW); UR GLUCOSE (Dip) NEGATIVE (NEGATIVE); UR KETONES (Dip) NEGATIVE (NEGATIVE); UR LEUKOCYTE ESTERASE (Dip) 3+ Leu/ul (NEGATIVE); UR MUCUS FEW /HPF (NONE SEEN); UR NITRITE (Dip) NEGATIVE (NEGATIVE); UR RBC 53 /HPF (0-5); UR SPECIFIC GRAVITY (Dip) 1.024 (1.003-1.030); UR TOTAL PROTEIN (Dip) 2+ mg/dl (NEGATIVE); UR UROBILINOGEN (Dip) NEGATIVE (NEGATIVE); UR WBC 31 /HPF (0-5)
[2017-10-05 14:02] LABS: CREATININE,URINE RANDOM 168.27 mg/dl (20-320)
[2017-10-05 14:02] LABS: SODIUM,URINE RANDOM 16 mmol/L (30-90)
[2017-10-05] MEDS: morphine 2 MG INJ IV (19:48)
[2017-10-05] MEDS: ATORVASTATIN 40 MG TAB PO (20:08)
[2017-10-05] MEDS: BIMATOPROST 0.01% 2.5 ML BTL BOTH EYES (21:00)
[2017-10-06] MEDS: morphine 2 MG INJ IV ×2 (00:46→09:14)
[2017-10-06] MEDS: PANTOPRAZOLE 40 MG INJ IV (05:25)
[2017-10-06 08:27] LABS: ADD MAN DIFF? NO
[2017-10-06 08:30] LABS: BASOPHILS % 0.3 % (0.0-2.0); EOSINOPHILS # 0.7 10^3/ul (0.0-0.5); EOSINOPHILS % 12.2 % (0.0-7.0); HEMOGLOBIN 9.6 g/dl (12.0-16.0); MEAN CORPUSCULAR HEMOGLOBIN 33.6 pg (29.0-33.0); MEAN CORPUSCULAR HGB CONC 33.1 g/dl (32.0-37.0); MEAN CORPUSCULAR VOLUME 101.4 fl (82.0-101.0); MEAN PLATELET VOLUME 9.7 fl (7.4-10.4); MONOCYTES % 16.9 % (0.0-11.0); NEUTROPHIL # 2.1 10^3/ul (1.6-7.5); NEUTROPHILS % 36.4 % (39.0-77.0); PLATELET COUNT 200 10^3/UL (140-415); RED BLOOD COUNT 2.86 10^6/ul (4.20-5.40); RED CELL DISTRIBUTION WIDTH 13.3 % (11.5-14.5)
[2017-10-06 08:30] LABS: WHITE BLOOD COUNT 5.8 10^3/ul (4.8-10.8)
[2017-10-06] MEDS: FERROUS SULFATE (EC) 325 MG TAB PO (08:43)
[2017-10-06] MEDS: ASPIRIN (EC) 81 MG TAB PO (08:44)
[2017-10-06] MEDS: CLOPIDOGREL 75 MG TAB PO (08:44)
[2017-10-06 08:51] LABS: ALANINE AMINOTRANSFERASE 23 IU/L (13-69); ALBUMIN 2.9 g/dl (3.3-4.9); ALBUMIN/GLOBULIN RATIO 1.11; ALKALINE PHOSPHATASE 36 IU/L (42-121); ANION GAP 10 (8-16); ASPARTATE AMINO TRANSFERASE 17 IU/L (15-46); BILIRUBIN,INDIRECT 0.3 mg/dl (0-1.1); BILIRUBIN,TOTAL 0.3 mg/dl (0.2-1.3); BLOOD UREA NITROGEN 20 mg/dl (7-20); CALCIUM 7.8 mg/dl (8.4-10.2); CARBON DIOXIDE 25 mmol/L (21-31); CHLORIDE 104 mmol/L (97-110); CREATININE 1.34 mg/dl (0.44-1.00); GLUCOSE 95 mg/dl (70-220); MAGNESIUM 2.6 mg/dl (1.7-2.5); POTASSIUM 4.4 mmol/L (3.5-5.1); SODIUM 135 mmol/L (135-144); TOTAL PROTEIN 5.5 g/dl (6.1-8.1)
[2017-10-06 08:56] LABS: B-TYPE NATRIURETIC PEPTIDE 957 PG/ML (0-450)
[2017-10-06 09:10] LABS: PHOSPHORUS 4.4 mg/dl (2.5-4.9)
[2017-10-07 17:21] LABS: CREATININE, RANDOM URINE 180 mg/dL (20-320); MICROALBUMIN 48.4 mg/dL; MICROALBUMIN/CREATININE RATIO 269 (<30)
== END 2017-10-06 15:10 | disposition home or self-care (01) | DRG 291 ==
LOC: TEL 10-04 18:28 → E/R 14:37 → ICU 17:45
DX: I50.33 Acute on chronic diastolic (congestive) heart failure (principal); J96.01 Acute respiratory failure with hypoxia; N17.9 Acute kidney failure, unspecified; E87.1 Hypo-osmolality and hyponatremia; J44.1 Chronic obstructive pulmonary disease with (acute) exacerbation; I11.0 Hypertensive heart disease with heart failure; E83.42 Hypomagnesemia; N14.4 Toxic nephropathy, not elsewhere classified; M06.9 Rheumatoid arthritis, unspecified; D64.9 Anemia, unspecified; I16.0 Hypertensive urgency; I25.10 Atherosclerotic heart disease of native coronary artery without angina pectoris; E78.5 Hyperlipidemia, unspecified; Z79.82 Long term (current) use of aspirin; Z79.02 Long term (current) use of antithrombotics/antiplatelets; Z87.891 Personal history of nicotine dependence; Z95.5 Presence of coronary angioplasty implant and graft; Z90.49 Acquired absence of other specified parts of digestive tract
CPT/HCPCS: 36415; 36600; 71045; 71275; 78452; 80048; 80053; 80061; 81001; 81003; 82043; 82550; 82553; 82803; 83735; 83880; 84100; 84155; 84300; 84484; 85025; 87081; 92610; 93005; 93017; 94660; 96374; 96375; 96376; 99285-25

== ENCOUNTER 2018-08-14 16:17 | Observation (INO) | payer MEDICARE, OTHER ==
[2018-08-14 17:11] LABS: HEMATOCRIT 38.8 % (37.0-47.0); HEMOGLOBIN 12.1 g/dl (12.0-16.0); MEAN CORPUSCULAR HEMOGLOBIN 32.3 pg (29.0-33.0); MEAN CORPUSCULAR HGB CONC 31.2 g/dl (32.0-37.0); MEAN CORPUSCULAR VOLUME 103.5 fl (82.0-101.0); MEAN PLATELET VOLUME 10.3 fl (7.4-10.4); PLATELET COUNT 187 10^3/UL (140-415); RED BLOOD COUNT 3.75 10^6/ul (4.20-5.40)
[2018-08-14 17:11] LABS: WHITE BLOOD COUNT 3.4 10^3/ul (4.8-10.8)
[2018-08-14 17:15] LABS: ADD MAN DIFF? YES; POSITIVE DIFF @See below
[2018-08-14 17:29] LABS: ANION GAP 10 (5-13); BLOOD UREA NITROGEN 22 mg/dl (7-20); CALCIUM 8.8 mg/dl (8.4-10.2); CARBON DIOXIDE 22 mmol/L (21-31); CHLORIDE 108 mmol/L (97-110); CREATININE 0.71 mg/dl (0.44-1.00); GLUCOSE 195 mg/dl (70-220); SODIUM 140 mmol/L (135-144)
[2018-08-14 17:41] LABS: B-TYPE NATRIURETIC PEPTIDE 687 PG/ML (0-450); POTASSIUM 5.3 mmol/L (3.5-5.1); TROPONIN-I < 0.012 ng/ml (0.000-0.120)
[2018-08-14] MEDS ORDERED: ACETAMINOPHEN 325 MG TAB PO ×2 (18:30→22:30)
[2018-08-14] MEDS ORDERED: ONDANSETRON 4 MG INJ IV ×2 (18:30→22:30)
[2018-08-14] MEDS: ENOXAPARIN 80 MG/0.8 ML SYG SC (18:36)
[2018-08-14 19:37] LABS: BAND NEUTROPHILS #M 0.2 10^3/ul (0.0-0.6); BAND NEUTROPHILS % (M) 8 % (0-4); LYMPHOCYTES #M 0.7 10^3/ul (0.8-2.9); LYMPHOCYTES % (M) 22 % (15-51); MONOCYTES % (M) 2 % (0-11); PLATELET ESTIMATE NORMAL; REACTIVE LYMPHOCYTES #M 0.1 10^3/ul (0.0-0.0); REACTIVE LYMPHOCYTES% (M) 5 % (0-0); SEG NEUT #M 2.1 10^3/ul (1.6-7.5); SEGMENTED NEUTROPHILS (M) % 63 % (39-77); SMUDGE%M 11 % (0-0)
[2018-08-14] MEDS: hydrALAzine 20 MG INJ IV (22:00)
[2018-08-14] MEDS: DEXTROSE 5%-0.45% NACL 1,000 ML IV (22:08)
[2018-08-14] MEDS ORDERED: NACL 0.9% 3 ML SYG IV (22:30)
[2018-08-14] MEDS: NITROGLYCERIN (SL) 0.4 MG TAB SL ×3 (22:33→22:51)
[2018-08-14] MEDS: INSULIN REGULAR, HUMAN 100 UNIT/1 ML 3ML VIAL IVP (23:00)
[2018-08-14] MEDS ORDERED: DEXTROSE 50% 50 ML SYRINGE IV (23:00)
[2018-08-14 23:19] LABS: CREATINE KINASE 283 IU/L (23-200)
[2018-08-14 23:30] LABS: CK INDEX 3.3; CK-MB 9.23 ng/ml (0.0-2.4); TROPONIN-I < 0.012 ng/ml (0.000-0.120)
[2018-08-14] MEDS: morphine 2 MG INJ IV (23:41)
[2018-08-14] MEDS: METOPROLOL 5 MG INJ IV (23:41)
[2018-08-15] MEDS: HYDROCODONE/APAP (5/325) TAB PO ×3 (01:12→20:50)
[2018-08-15] MEDS: morphine 2 MG INJ IV ×3 (04:26→17:17)
[2018-08-15] MEDS: INSULIN REGULAR, HUMAN 100 UNIT/1 ML 3ML VIAL IVP (06:24)
[2018-08-15 07:05] LABS: ADD MAN DIFF? NO
[2018-08-15 07:06] LABS: HEMATOCRIT 35.3 % (37.0-47.0); HEMOGLOBIN 11.4 g/dl (12.0-16.0); LYMPHOCYTES # 1.2 10^3/ul (0.8-2.9); LYMPHOCYTES % 30.1 % (15.0-51.0); MEAN CORPUSCULAR HEMOGLOBIN 32.7 pg (29.0-33.0); MEAN CORPUSCULAR HGB CONC 32.3 g/dl (32.0-37.0); MEAN CORPUSCULAR VOLUME 101.1 fl (82.0-101.0); MEAN PLATELET VOLUME 10.6 fl (7.4-10.4); MONOCYTE # 0.1 10^3/ul (0.3-0.9); MONOCYTES % 2.2 % (0.0-11.0); NEUTROPHIL # 2.8 10^3/ul (1.6-7.5); NEUTROPHILS % 67.7 % (39.0-77.0); PLATELET COUNT 164 10^3/UL (140-415); RED BLOOD COUNT 3.49 10^6/ul (4.20-5.40); RED CELL DISTRIBUTION WIDTH 12.9 % (11.5-14.5)
[2018-08-15 07:06] LABS: WHITE BLOOD COUNT 4.1 10^3/ul (4.8-10.8)
[2018-08-15 07:39] LABS: CREATINE KINASE 313 IU/L (23-200)
[2018-08-15 07:45] LABS: ALANINE AMINOTRANSFERASE 64 IU/L (13-69); ALBUMIN 3.6 g/dl (3.3-4.9); ALBUMIN/GLOBULIN RATIO 1.24; ALKALINE PHOSPHATASE 49 IU/L (42-121); ANION GAP 13 (5-13); ASPARTATE AMINO TRANSFERASE 55 IU/L (15-46); BILIRUBIN,INDIRECT 0.2 mg/dl (0-1.1); BILIRUBIN,TOTAL 0.2 mg/dl (0.2-1.3); BLOOD UREA NITROGEN 22 mg/dl (7-20); CALCIUM 8.8 mg/dl (8.4-10.2); CARBON DIOXIDE 22 mmol/L (21-31); CHLORIDE 104 mmol/L (97-110); CHOL/HDL RATIO 2.3 RATIO; CHOLESTEROL 159 mg/dl (100-200); CREATININE 0.62 mg/dl (0.44-1.00); GLUCOSE 190 mg/dl (70-220); HDL CHOLESTEROL 69 mg/dl (33-92); LDL CHOLESTEROL,CALCULATED 78 mg/dl; MAGNESIUM 1.8 mg/dl (1.7-2.5); POTASSIUM 4.6 mmol/L (3.5-5.1); SODIUM 139 mmol/L (135-144); TOTAL PROTEIN 6.5 g/dl (6.1-8.1); TRIGLYCERIDES 60 mg/dl (0-149)
[2018-08-15 07:49] LABS: B-TYPE NATRIURETIC PEPTIDE 3940 PG/ML (0-450)
[2018-08-15 07:51] LABS: CK INDEX 2.4; CK-MB 7.52 ng/ml (0.0-2.4); TROPONIN-I 0.019 ng/ml (0.000-0.120)
[2018-08-15 07:58] LABS: FREE T4 (FREE THYROXINE) 0.93 ng/dl (0.85-1.93)
[2018-08-15 08:11] LABS: THYROID STIMULATING HORMONE 0.654 MIU/L (0.465-4.680)
[2018-08-15 08:37] LABS: HEMOGLOBIN A1C 5.6 % (0-5.9)
[2018-08-15] MEDS: REGADENOSON 0.4 MG/5 ML SYG (09:35)
[2018-08-15] MEDS: ENALAPRIL 5 MG TAB PO ×2 (09:41→20:52)
[2018-08-15] MEDS: DICLOFENAC SODIUM 1% GEL 100 GM TUBE TP ×4 (11:23→20:53)
[2018-08-15] MEDS: FLUTICASONE 0.05% 16 GM NAS SPRAY NASAL ×2 (11:25→20:49)
[2018-08-15] MEDS: CLOPIDOGREL 75 MG TAB PO (11:26)
[2018-08-15] MEDS: FAMOTIDINE 20 MG TAB PO (11:27)
[2018-08-15] MEDS: CALCIUM/VITAMIN D (500/200) TAB PO (11:27)
[2018-08-15] MEDS: ASPIRIN (EC) 81 MG TAB PO (11:27)
[2018-08-15] MEDS: hydrALAzine 20 MG INJ IV (11:42)
[2018-08-15 13:30] LABS: CREATINE KINASE 771 IU/L (23-200)
[2018-08-15 13:43] LABS: CK INDEX 1.4; TROPONIN-I 0.017 ng/ml (0.000-0.120)
[2018-08-15] MEDS: DEXTROSE 5%-0.45% NACL 1,000 ML IV (17:21)
[2018-08-15] MEDS: INFLUENZA VIRUS VACCINE 0.5 ML (DISPENSING) IM* (19:38)
[2018-08-15] MEDS: BIMATOPROST 0.01% 2.5 ML BTL BOTH EYES (20:49)
[2018-08-15] MEDS: ATORVASTATIN 40 MG TAB PO (20:51)
[2018-08-15] MEDS: GABAPENTIN 300 MG CAP PO (20:52)
[2018-08-16] MEDS: DEXTROSE 5%-0.45% NACL 1,000 ML IV ×2 (00:48→06:22)
[2018-08-16] MEDS: morphine LIQ (10 MG/5 ML) CUP PO ×3 (01:46→10:28)
[2018-08-16] MEDS: HYDROCODONE/APAP (5/325) TAB PO (05:37)
[2018-08-16] MEDS: CLOPIDOGREL 75 MG TAB PO (08:58)
[2018-08-16] MEDS: ENALAPRIL 5 MG TAB PO (08:58)
[2018-08-16] MEDS: CALCIUM/VITAMIN D (500/200) TAB PO (08:59)
[2018-08-16] MEDS: ASPIRIN (EC) 81 MG TAB PO (08:59)
[2018-08-16] MEDS: FLUTICASONE 0.05% 16 GM NAS SPRAY NASAL (08:59)
[2018-08-16] MEDS: FAMOTIDINE 20 MG TAB PO (08:59)
[2018-08-16] MEDS: DICLOFENAC SODIUM 1% GEL 100 GM TUBE TP (09:00)
== END 2018-08-16 12:37 | disposition home or self-care (01) ==
LOC: E/R 16:17 → 6WM 18:22
DX: R07.9 Chest pain, unspecified (principal); I10 Essential (primary) hypertension; I25.10 Atherosclerotic heart disease of native coronary artery without angina pectoris; M19.072 Primary osteoarthritis, left ankle and foot; M71.9 Bursopathy, unspecified; Z23 Encounter for immunization; I25.2 Old myocardial infarction; M06.9 Rheumatoid arthritis, unspecified; E87.5 Hyperkalemia; Z88.0 Allergy status to penicillin; R06.02 Shortness of breath
CPT/HCPCS: 71045; 73610-RT; 78452; 80048; 80053; 80061; 82550; 82553; 83036; 83735; 83880; 84439; 84443; 84484; 85025; 90686; 93005; 93017; 93306; 97161; 99285-25; G0378

== ENCOUNTER 2018-12-08 06:42 | Emergency (ER) | payer MEDICARE, OTHER ==
[2018-12-08 07:33] LABS: ADD MAN DIFF? NO
[2018-12-08] MEDS: hydrALAzine 20 MG INJ IV (07:40)
[2018-12-08] MEDS: SOD CHLORIDE 0.9% 500 ML IV (07:40)
[2018-12-08 07:43] LABS: HEMATOCRIT 37.2 % (37.0-47.0); HEMOGLOBIN 12.1 g/dl (12.0-16.0); LYMPHOCYTES # 1.3 10^3/ul (0.8-2.9); LYMPHOCYTES % 28.2 % (15.0-51.0); MEAN CORPUSCULAR HEMOGLOBIN 31.9 pg (29.0-33.0); MEAN CORPUSCULAR HGB CONC 32.5 g/dl (32.0-37.0); MEAN CORPUSCULAR VOLUME 98.2 fl (82.0-101.0); MEAN PLATELET VOLUME 10.1 fl (7.4-10.4); MONOCYTE # 0.1 10^3/ul (0.3-0.9); MONOCYTES % 1.5 % (0.0-11.0); NEUTROPHIL # 3.3 10^3/ul (1.6-7.5); NEUTROPHILS % 70.1 % (39.0-77.0); PLATELET COUNT 169 10^3/UL (140-415); RED BLOOD COUNT 3.79 10^6/ul (4.20-5.40); RED CELL DISTRIBUTION WIDTH 13.3 % (11.5-14.5)
[2018-12-08 07:43] LABS: WHITE BLOOD COUNT 4.7 10^3/ul (4.8-10.8)
[2018-12-08] MEDS: ACETAMINOPHEN 500 MG TAB PO (08:02)
[2018-12-08 08:06] LABS: ADD UMIC NO; ANION GAP 10 (5-13); BLOOD UREA NITROGEN 25 mg/dl (7-20); CALCIUM 9.6 mg/dl (8.4-10.2); CARBON DIOXIDE 26 mmol/L (21-31); CHLORIDE 101 mmol/L (97-110); CREATININE 0.72 mg/dl (0.44-1.00); GLUCOSE 167 mg/dl (70-220); POTASSIUM 4.5 mmol/L (3.5-5.1); SODIUM 137 mmol/L (135-144); UR ASCORBIC ACID NEGATIVE (NEGATIVE); UR BILIRUBIN (Dip) NEGATIVE (NEGATIVE); UR BLOOD (Dip) NEGATIVE (NEGATIVE); UR CLARITY CLEAR (CLEAR); UR COLOR STRAW (YELLOW); UR GLUCOSE (Dip) NEGATIVE (NEGATIVE); UR KETONES (Dip) NEGATIVE (NEGATIVE); UR LEUKOCYTE ESTERASE (Dip) NEGATIVE Leu/ul (NEGATIVE); UR NITRITE (Dip) NEGATIVE (NEGATIVE); UR SPECIFIC GRAVITY (Dip) 1.012 (1.003-1.030); UR TOTAL PROTEIN (Dip) NEGATIVE (NEGATIVE); UR UROBILINOGEN (Dip) NEGATIVE (NEGATIVE)
[2018-12-08 08:19] LABS: TROPONIN-I < 0.012 ng/ml (0.000-0.120)
[2018-12-08 08:22] LABS: B-TYPE NATRIURETIC PEPTIDE 1820 PG/ML (0-450)
== END 2018-12-08 08:35 | disposition home or self-care (01) ==
LOC: E/R 06:42
DX: R51 Headache (principal); I10 Essential (primary) hypertension; I25.10 Atherosclerotic heart disease of native coronary artery without angina pectoris; I25.2 Old myocardial infarction; Z79.01 Long term (current) use of anticoagulants; Z79.82 Long term (current) use of aspirin; Z98.61 Coronary angioplasty status; Z92.241 Personal history of systemic steroid therapy
CPT/HCPCS: 36415; 71045; 80048; 81003; 83880; 84484; 85025; 93005; 96361; 96374; 99285-25